=== PATIENT | male | born 1945 | race Caucasian/White ===

== ENCOUNTER 2022-02-01 08:00 | Outpatient (CLI) | payer MEDICARE, OTHER ==
[2022-02-01 20:15] LABS: BILIRUBIN,URINE NEGATIVE (NEGATIVE); GLUCOSE, URINE (UA) NEGATIVE (NEGATIVE); KETONES,URINE (UA) TRACE mg/dL (NEGATIVE); LEUKOCYTE ESTERASE, URINE SMALL (NEGATIVE); NITRITE,URINE NEGATIVE (NEGATIVE); OCCULT BLOOD,URINE NEGATIVE (NEGATIVE); PROTEIN,URINE NEGATIVE (NEGATIVE); UROBILINOGEN,URINE 0.2 (NORMAL) E.U./dL (NORMAL)
[2022-02-01 20:30] LABS: BACTERIA,URINE Moderate /HPF (None Seen); CLARITY,URINE CLOUDY (CLEAR); RBC,URINE None Seen /HPF (0-5); SQUAMOUS EPITHELIAL CELL,UR FEW Squamous (<= Few)
[2022-02-01 20:31] LABS: AMORPHOUS SEDIMENT,UR Marked /LPF
== END 2022-02-01 23:59 | disposition home or self-care (01) ==
LOC: LAB.S 08:00
PROVIDERS: ATTEND Emergency Medicine
DX: R30.0 Dysuria (principal)
CPT/HCPCS: 81001; 87077; 87086; 87181

== ENCOUNTER 2023-05-24 15:09 | Outpatient (CLI) | payer MEDICARE | END 2023-05-24 15:10 | disposition EMS.NT | LOC: EMS 15:09 | DX: R53.1 Weakness (principal); R39.89 Other symptoms and signs involving the genitourinary system ==

== ENCOUNTER 2023-05-24 16:13 | Emergency (ER) | payer MEDICARE, OTHER ==
[2023-05-24 16:58] LABS: GLUCOSE, URINE (UA) NEGATIVE (NEGATIVE); KETONES,URINE (UA) TRACE mg/dL (NEGATIVE); LEUKOCYTE ESTERASE, URINE MODERATE (NEGATIVE); NITRITE,URINE NEGATIVE (NEGATIVE); OCCULT BLOOD,URINE TRACE-INTA (NEGATIVE); PROTEIN,URINE 30 mg/dL (NEGATIVE); UROBILINOGEN,URINE 1 (NORMAL) E.U./dL (NORMAL)
[2023-05-24 17:03] LABS: CLARITY,URINE HAZY (CLEAR)
[2023-05-24 17:04] LABS: BILIRUBIN,URINE NEGATIVE (NEGATIVE); ICTOTEST,URINE NEGATIVE
--- NOTE | 2023-05-24 17:16 | ED Physician Documentation ---
PD HPI MALE - Stated complaint Stated Complaint: - Chief complaint Chief Complaint: UTI - History obtained from History obtained from: Patient, Family (daughter) - History of Present Illness Timing - onset: How many days ago (has had some mild confusion over baseline the past 1-2 days, with some left flank pain and some frequency of urination. Had incontinence last night, which is not common for him. No hematuria. Pt states it is similar to a prior UTI.) Timing - duration: Days (1-2) Timing - details: Gradual onset, Still present Associated symptoms: Urinary frequency. No: Hematuria, Discharge, Abdominal pain Similar symptoms before: Diagnosis (UTI remotely with similar symptoms.) Recently seen: Clinic (had been having some anger outbursts and lability along with his dementia and was started on Seroquel 25 mg at bed 3 weeks ago with improvement in mood/behavior, but daughter states he has been sleepier to get up in mornings. He seems slightly more confused the past couple of days. Wonders if med.) Review of Systems Unable to obtain: Other (poor short term memory, some info from family.) Constitutional: denies: Fever Respiratory: denies: Cough GI: reports: Vomiting, Other (decreased fluid intake the past 2-3 days). denies: Abdominal Pain, Diarrhea : reports: Frequency, Incontinent (last night). denies: Hematuria Musculoskeletal: reports: Back pain (left side for past 2 days) PD PAST MEDICAL HISTORY - Past Medical History Cardiovascular: None Respiratory: None Neuro: Dementia Endocrine/Autoimmune: None - Present Medications Home Medications: Ambulatory Orders Medication Instructions Recorded Confirmed Atorvastatin Calcium 40 mg PO DAILY 05/24/23 05/24/23 Donepezil [Aricept] 10 mg PO DAILY 05/24/23 05/24/23 QUEtiapine [SEROquel] 25 mg PO QPM 05/24/23 05/24/23 Sertraline HCl 100 mg PO DAILY 05/24/23 05/24/23 Tamsulosin HCl [Flomax] 0.4 mg PO DAILY 05/24/23 05/24/23 cephALEXin [Keflex] 500 mg PO TID #20 cap 05/24/23 - Allergies Allergies/Adverse Reactions: Allergies Allergy/AdvReac Type Severity Reaction Status Date / Time No Known Drug Allergies Allergy Verified 05/24/23 16:35 PD ED PE NORMAL - Vitals Vital signs reviewed: Yes - General General: Alert and oriented X 3 (he is actually qutie conversant and interacts well. Poor short term memory of events the past several days. ), No acute distress, Well developed/nourished - HEENT HEENT: Atraumatic - Neck Neck: Supple, no meningeal sign, No adenopathy - Cardiac Cardiac: RRR, No murmur - Respiratory Respiratory: Clear bilaterally - Abdomen Abdomen: Soft, Non tender, Non distended - Back Back: Other (mild left CVA tenderness. ) - Derm Derm: Normal color, Warm and dry - Extremities Extremities: No edema, No calf tenderness / cord - Neuro Neuro: Alert and oriented X 3, No motor deficit, No sensory deficit, Normal speech Results - Vitals Vitals: Oxygen O2 Source Room air - Labs Labs: Microbiology 05/24/23 16:50 Urine Culture - Preliminary Urine,Clean Catch Laboratory Tests 05/24/23 05/24/23 05/24/23 16:50 18:19 18:19 WBC 12.1 H RBC 4.27 L Hgb 13.6 L Hct 40.8 L MCV 95.6 H MCH 31.9 H MCHC 33.3 RDW 14.0 Plt Count 170 MPV 10.1 Neut # (Auto) 10.2 H Lymph # (Auto) 0.9 L [place] # (Auto) 0.9 Eos # (Auto) 0.0 Baso # (Auto) 0.0 Absolute Nucleated RBC 0.00 Nucleated RBC % 0.0 Sodium 135 Potassium 4.0 Chloride 100 L Carbon Dioxide 29 Anion Gap 6.0 BUN 24 H Creatinine 0.9 Estimated GFR (MDRD) 82 L Glucose 120 H Calcium 9.1 Magnesium 1.7 Total Bilirubin 1.7 H AST 24 ALT 19 Alkaline Phosphatase 103 Total Protein 6.6 Albumin 4.3 Globulin 2.3 Albumin/Globulin Ratio 1.9 Lipase 33 Urine Color YELLOW Urine Clarity HAZY Urine pH 5.0 Ur Specific [place] >=1.030 H Urine Protein 30 H Urine Glucose (UA) NEGATIVE Urine Ketones TRACE Urine Occult Blood TRACE-INTA Urine Nitrite NEGATIVE Urine Bilirubin NEGATIVE Urine Urobilinogen 1 (NORMAL) Ur Leukocyte Esterase MODERATE H Urine RBC None Seen Urine WBC >25 H Ur Squamous Epith Cells NONE SEEN Urine Bacteria Moderate H Urine Mucus Moderate Strands Ur Microscopic Review INDICATED Urine Culture Comments INDICATED PD Medical Decision Making - ED course Complexity details: reviewed results (WBC elevated at 12K. Not anemic. Lytes area good. Creatinine 0.9. UA c/w UTI with leuks, bacteria. Culture pending. ), considered differential (he ias having general weakness and feels some slight confusion. He has been more sleepy since started on Seroquel. Has not had behavioral outbursts though. Has had some UTI symptoms and UA is c/w UTI. Can treat for that. ), d/w patient ED course: Daughter is asking about decreasing or stopping the Seroquel since pt more sleepy in mornings/etc since starting it. She wonders if some of the weakness from med. She does state, when I ask about the behavioral aspects, that his mood during day has been more agreeable and not having outbursts. I described it as a balance between those aspects. His mood and behavior would be brian to being able to stay at the care facility, so they may need to tolerate some sleepiness. They can talk iwth his neurologist about decreasing dose if he remains too sleepy seeming after treating for the UTI (he has been on the Seroquel for 3 weeks and only the past few days seeming a bit confused per daughter). No other change in meds recent. He had been drinking less fluids the past few days, so maybe having higher effect of the Seroquel if underhydrated. Labs are good with creatinine 0.9 and GFR is reasonable at 82, without comparison labs in our system. Departure - Departure Disposition: 01 Home, Self Care Clinical Impression: Weakness, Mild dementia UTI (urinary tract infection) Qualifiers: Urinary tract infection type: acute cystitis Condition: Stable Record reviewed to determine appropriate education?: Yes Instructions: ED UTI Cystitis Male Follow-Up: MAJOR BLANTON MD [Primary Care Provider] - Prescriptions: cephALEXin [Keflex] 500 mg PO TID #20 cap Comments: Your white count/blood count is good with minimal elevation of the white count suggesting infection, not any signs of anemia. Your basic chemistry panel shows normal electrolytes and kidney function. Your urinalysis shows signs of infection. I think this is likely the cause of your symptoms and the feeling of unwellness. I would anticipate improvement with treating this with antibiotics over the next week. Stay well-hydrated. For now continue usual medications. Use the cephalexin 3 times a day for a week. I sent this to your preferred pharmacy electronically. You could discuss with your neurologist on Friday the idea of if you wish to try to decrease the Seroquel dosing but for now I would probably leave it as is until you discuss it with your specialist. Recheck if not improving well over the next couple of days and return if worse. Tylenol every 4-6 hours if needed for pains or fevers. I sent a prescription to the [facility] pharmacy in [place]. Discharge Date/Time: 05/24/23 19:19
[2023-05-24 17:35] LABS: BACTERIA,URINE Moderate /HPF (None Seen); MUCUS,URINE Moderate Strands; RBC,URINE None Seen /HPF (0-5); SQUAMOUS EPITHELIAL CELL,UR NONE SEEN (<= Few); WBC,URINE >25 /HPF (0-3)
[2023-05-24] MEDS ORDERED: cephALEXin 250 MG CAPSULE PO STA (17:48)
[2023-05-24 18:29] LABS: BASOPHILS % (AUTO) 0.2 %; HCT - HEMATOCRIT 40.8 % (42.0-52.0); HGB - HEMOGLOBIN 13.6 g/dL (14.0-18.0); LYMPHOCYTES # (AUTO) 0.9 10^3/uL (1.5-3.5); LYMPHOCYTES % (AUTO) 7.4 %; MEAN CORPUSCULAR HEMOGLOBIN 31.9 pg (27.0-31.0); MEAN CORPUSCULAR HGB CONC 33.3 g/dL (32.0-36.0); MEAN CORPUSCULAR VOLUME 95.6 fL (80.0-94.0); MEAN PLATELET VOLUME 10.1 fL (7.4-11.4); MONOCYTES # (AUTO) 0.9 10^3/uL (0.0-1.0); MONOCYTES % (AUTO) 7.5 %; NEUTROPHILS # (AUTO) 10.2 10^3/uL (1.5-6.6); NEUTROPHILS % (AUTO) 84.6 %; PLT - PLATELET COUNT 170 10^3/uL (130-450); RED BLOOD COUNT 4.27 10^6/uL (4.70-6.10); WHITE BLOOD COUNT 12.1 x10^3/uL (4.8-10.8)
[2023-05-24 18:45] LABS: ALBUMIN 4.3 g/dL (3.2-5.5); MAGNESIUM 1.7 mg/dL (1.7-2.3)
[2023-05-24 18:56] LABS: ALBUMIN/GLOBULIN RATIO 1.9 (1.0-2.2); BILIRUBIN,TOTAL 1.7 mg/dL (0.2-1.0); CALCIUM 9.1 mg/dL (8.5-10.3); CREATININE 0.9 mg/dL (0.6-1.3); TOTAL PROTEIN 6.6 g/dL (6.4-8.9)
[2023-05-24 19:20] VITALS: BP 148/84; O2SAT 98
== END 2023-05-24 19:19 | disposition home or self-care (01) ==
LOC: ED 16:13
DX: F03.A0 Unspecified dementia, mild, without behavioral disturbance, psychotic disturbance, mood disturbance, and anxiety (principal); N30.90 Cystitis, unspecified without hematuria
CPT/HCPCS: 36415; 80053; 81001; 83690; 83735; 85025; 87077; 87086; 87181; 99283; 99284; A9270; 81003

== ENCOUNTER 2023-10-01 11:26 | Outpatient (CLI) | payer MEDICARE | END 2023-10-01 23:59 | disposition home or self-care (01) | LOC: EMS 11:26 | DX: M25.561 Pain in right knee (principal); W01.0XXA Fall on same level from slipping, tripping and stumbling without subsequent striking against object, initial encounter; Y92.099 Unspecified place in other non-institutional residence as the place of occurrence of the external cause; F03.90 Unspecified dementia, unspecified severity, without behavioral disturbance, psychotic disturbance, mood disturbance, and anxiety | CPT/HCPCS: A0425; A0429 ==

== ENCOUNTER 2023-10-01 11:53 | Emergency (ER) | payer MEDICARE ==
--- NOTE | 2023-10-01 12:10 | ED Physician Documentation ---
PD HPI Fall - Stated complaint Stated Complaint: Fall - History obtained from History obtained from: Patient - History of Present Illness Mechanism of injury: Tripped (he states he jumped some to get over his dog that was lying in the way, fell forward onto knee. Pain and swelling in right knee. Denies other injury. No blood thinners.), Lost balance Fall distance: Standing position Where injury occurred: Home ([facility] Injury(ies) location: Right Lower Extremity (anterior knee). No: Head, Neck, Chest, Abdomen Associated symptoms: No: AMS, Neck pain, Weakness, Paresthesias Contributing factors: No: Anticoagulated Review of Systems Skin: denies: Abrasion (s), Laceration (s) Musculoskeletal: denies: Neck pain, Back pain Neurologic: denies: Focal weakness, Numbness, Confused, Altered mental status, Headache PD PAST MEDICAL HISTORY - Past Medical History Cardiovascular: None Respiratory: None Neuro: Dementia Endocrine/Autoimmune: None : Benign prostate hypertrophy HEENT: Glaucoma Psych: Anxiety Derm: Herpes zoster - Present Medications Home Medications: Ambulatory Orders Medication Instructions Recorded Confirmed Atorvastatin Calcium 40 mg PO DAILY 05/24/23 05/24/23 Donepezil [Aricept] 10 mg PO DAILY 05/24/23 05/24/23 QUEtiapine [SEROquel] 25 mg PO QPM 05/24/23 05/24/23 Sertraline HCl 100 mg PO DAILY 05/24/23 05/24/23 Tamsulosin HCl [Flomax] 0.4 mg PO DAILY 05/24/23 05/24/23 cephALEXin [Keflex] 500 mg PO TID #20 cap 05/24/23 - Allergies Allergies/Adverse Reactions: Allergies Allergy/AdvReac Type Severity Reaction Status Date / Time No Known Drug Allergies Allergy Verified 10/01/23 12:12 - Social History Does the pt smoke?: No Smoking Status: Never smoker PD ED PE NORMAL - Vitals Vital signs reviewed: Yes - General General: Alert and oriented X 3, No acute distress, Well developed/nourished - Extremities Extremities: Other (right anterior knee with tednerness. Some effusion anterior knee. No noted deformity. ) - Neuro Neuro: Alert and oriented X 3, No motor deficit, No sensory deficit Results - Vitals Vitals: Vital Signs - 24 hr 10/01/23 10/01/23 12:04 15:14 Temperature 36.2 C L Heart Rate 95 87 Respiratory 20 14 Rate Blood Pressure 163/93 H 140/75 H O2 Saturation 93 96 Oxygen O2 Source Room air - Rads (name of study) right knee Relevant Findings:: Prelim report reviewed, EMP independent interpretation of test (no fractures. No effusion. ) PD Medical Decision Making - ED course Complexity details: reviewed results (xray knee without fracture. ), considered differential (he states he fell onto knee with some swelling. Denies other injury. Particularly denies KWAN, neck pain, back pain. ), d/w patient Departure - Departure Disposition: Home, Self Care Clinical Impression: Accidental fall, Knee contusion Condition: Stable Record reviewed to determine appropriate education?: Yes Instructions: ED Contusion Lower Ext Comments: Your knee x-ray does not show any fractures. You do have swelling of the knee and that will make it sore and painful for motion and walking. I would assume this will improve over several days to week. Tylenol every 4-6 hours if needed for pains. You do not necessarily need a knee splint. Activity as tolerated. Discharge Date/Time: 10/01/23 16:05
--- NOTE | 2023-10-01 14:12 | XRAY Report ---
PROCEDURE: Knee 3V RT INDICATIONS: fall onto knee, with swelling TECHNIQUE: 3 views of the knee(s) were acquired. COMPARISON: None. FINDINGS: Bones: No fractures or dislocations. No suspicious bony lesions. Soft tissues: No knee joint effusion. No suspicious soft tissue calcifications or masses. IMPRESSION: No acute fracture. No osseous lesion. If symptoms and/or clinical suspicion for pathology continue, f urther assessment with repeat plain films, or advanced imaging (e.g., CT, MRI, or bone scan) is recom mended for further assessment. Reviewed by: Rinku Wong MD on 10/01/2023 2:11 PM PST Approved by: Rinku Wong MD on 10/01/2023 2:11 PM PST Station ID: [id number]
[2023-10-01 15:21] VITALS: BP 140/75; O2SAT 96
== END 2023-10-01 16:05 | disposition home or self-care (01) ==
LOC: EDUNIT# → ED 11:53
DX: S80.01XA Contusion of right knee, initial encounter (principal); W01.0XXA Fall on same level from slipping, tripping and stumbling without subsequent striking against object, initial encounter; Y92.099 Unspecified place in other non-institutional residence as the place of occurrence of the external cause; F03.90 Unspecified dementia, unspecified severity, without behavioral disturbance, psychotic disturbance, mood disturbance, and anxiety; Z79.899 Other long term (current) drug therapy
CPT/HCPCS: 99283

== ENCOUNTER 2023-10-24 10:03 | Outpatient (CLI) | payer MEDICARE | END 2023-10-24 23:59 | disposition left against medical advice (07) | LOC: EMS 10:03 | DX: Z03.89 Encounter for observation for other suspected diseases and conditions ruled out (principal); W01.198A Fall on same level from slipping, tripping and stumbling with subsequent striking against other object, initial encounter; Y93.01 Activity, walking, marching and hiking; Y92.098 Other place in other non-institutional residence as the place of occurrence of the external cause ==

== ENCOUNTER 2023-10-30 10:45 | Outpatient (CLI) | payer MEDICARE | END 2023-10-30 10:46 | disposition critical access hospital (66) | LOC: EMS 10:45 | DX: R41.0 Disorientation, unspecified (principal); Z87.440 Personal history of urinary (tract) infections | CPT/HCPCS: A0425; A0429 ==

== ENCOUNTER 2023-10-30 11:09 | Emergency (ER) | payer MEDICARE ==
--- NOTE | 2023-10-30 11:16 | ED Physician Documentation ---
History of Present Illness - Stated complaint Stated Complaint: UTI - Additonal information Additional information: 78-year-old male presents emergency department via EMS from [facility] for concerns from nursing staff about patient having increased confusion and agitation. Patient had a ground-level fall hitting head about 3 to 4 days ago unsure what elicited this fall. He does have history of UTIs, prostatectomy, dementia. Patient is able to follow commands and provide history what brings him to the emergency department today as well as answer all appropriate questions he is not any blood thinners PD PAST MEDICAL HISTORY - Past Medical History Cardiovascular: None Respiratory: None Neuro: Dementia Endocrine/Autoimmune: None : Benign prostate hypertrophy HEENT: Glaucoma Psych: Anxiety Derm: Herpes zoster - Past Surgical History Past Surgical History: No - Present Medications Home Medications: Ambulatory Orders Medication Instructions Recorded Confirmed Atorvastatin Calcium 40 mg PO DAILY 05/24/23 05/24/23 Donepezil [Aricept] 10 mg PO DAILY 05/24/23 05/24/23 QUEtiapine [SEROquel] 25 mg PO QPM 05/24/23 05/24/23 Sertraline HCl 100 mg PO DAILY 05/24/23 05/24/23 Tamsulosin HCl [Flomax] 0.4 mg PO DAILY 05/24/23 05/24/23 cephALEXin [Keflex] 500 mg PO TID #20 cap 05/24/23 - Allergies Allergies/Adverse Reactions: Allergies Allergy/AdvReac Type Severity Reaction Status Date / Time No Known Drug Allergies Allergy Verified 10/30/23 11:21 - Social History Does the pt smoke?: No Smoking Status: Never smoker Does the pt drink ETOH?: No Does the pt have substance abuse?: No - Immunizations Immunizations are current?: Yes - POLST Patient has POLST: Yes PD ED PE NORMAL - Vitals Vital signs reviewed: Yes - General General: Alert and oriented X 3, No acute distress, Well developed/nourished - HEENT HEENT: Atraumatic, PERRL, EOMI, Moist mucous membranes, Pharynx benign - Neck Neck: No bony TTP, C-Spine cleared by NEXUS criteria - Cardiac Cardiac: RRR - Respiratory Respiratory: No respiratory distress - Abdomen Abdomen: Normal bowel sounds, Soft, Non tender, Non distended, No organomegaly - Back Back: No CVA TTP - Derm Derm: Normal color, Warm and dry, No rash - Extremities Extremities: No edema - Neuro Neuro: Alert and oriented X 3, 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, No motor deficit, No sensory deficit, Normal speech Eye Opening: Spontaneous Motor: Obeys Commands Verbal: Oriented GCS Score: 15 - Psych Psych: Normal mood, Normal affect Results - Vitals Vitals: Vital Signs - 24 hr 10/30/23 10/30/23 11:15 14:03 Temperature 36.4 C L Heart Rate 60 48 L Respiratory 15 15 Rate Blood Pressure 155/95 H 147/93 H O2 Saturation 97 95 Oxygen O2 Source Room air - Labs Labs: Laboratory Tests 10/30/23 10/30/23 10/30/23 11:40 11:40 12:40 WBC 5.6 RBC 3.83 L Hgb 12.1 L Hct 37.2 L MCV 97.1 H MCH 31.6 H MCHC 32.5 RDW 14.2 Plt Count 167 MPV 9.9 Neut # (Auto) 3.5 Lymph # (Auto) 1.3 L [place] # (Auto) 0.6 Eos # (Auto) 0.2 Baso # (Auto) 0.0 Absolute Nucleated RBC 0.00 Nucleated RBC % 0.0 Sodium 142 Potassium 3.4 L Chloride 108 Carbon Dioxide 31 Anion Gap 3.0 L BUN 22 H Creatinine 0.8 Estimated GFR (MDRD) 93 Glucose 99 Calcium 8.7 Magnesium 1.8 Total Bilirubin 1.1 H AST 16 ALT 16 Alkaline Phosphatase 117 Total Protein 6.0 L Albumin 3.7 Globulin 2.3 Albumin/Globulin Ratio 1.6 Lipase 35 Urine Color DARK YELLOW Urine Clarity CLEAR Urine pH 6.5 Ur Specific [place] 1.020 Urine Protein NEGATIVE Urine Glucose (UA) NEGATIVE Urine Ketones NEGATIVE Urine Occult Blood NEGATIVE Urine Nitrite NEGATIVE Urine Bilirubin NEGATIVE Urine Urobilinogen 2 H Ur Leukocyte Esterase NEGATIVE Ur Microscopic Review NOT INDICATED Urine Culture Comments NOT INDICATED - Rads (name of study) Head CT without Relevant Findings:: Final report received, EMP independent interpretation of test, Other (No acute intracranial abnormalities) PD Medical Decision Making - ED course ED course: 78-year-old male presents emergency department for concerns from [facility] of altered mental status and ground-level fall. Head CT was complete and there is no intracranial abnormalities or findings. Labs are also complete his mild anemia, hemoglobin 12.1, hematocrit 37.2, no significant electrolyte abnormalities, and urinalysis is unremarkable not indicative of a urinary tract infection, no nitrates no leukocytes. At this point in time I am not seeing any confusion he is alert and oriented x 4 to for myself he does appear to have some mild short-term memory loss. Nursing staff report also that they were noting some agitation but patient is calm and cooperative here in the emergency department resting comfortably. I do not believe there is any further emergent workup indicated at this time. Patient is safe for discharge return precautions given. Departure - Departure Disposition: 01 Home, Self Care Clinical Impression: Ground-level fall Instructions: Falls Prevent Stay Active, Falls Preventing Comments: Thank you for trusting us with your care, we have evaluated you for your ground- level fall and increased confusion. You do not have a urinary tract infection given no other acute lab abnormalities. We also completed a head CT which was found to be within normal limits. At this point in time you are safe for discharge please follow-up with your primary care provider as needed.
[2023-10-30] MEDS: ERYTHROMYCIN OPHTH OINT 1 GM TUBE RIGHTEYE STA (11:44)
[2023-10-30 11:47] LABS: BASOPHILS % (AUTO) 0.5 %; EOSINOPHILS # (AUTO) 0.2 10^3/uL (0.0-0.7); EOSINOPHILS % (AUTO) 3.4 %; HCT - HEMATOCRIT 37.2 % (42.0-52.0); HGB - HEMOGLOBIN 12.1 g/dL (14.0-18.0); LYMPHOCYTES # (AUTO) 1.3 10^3/uL (1.5-3.5); LYMPHOCYTES % (AUTO) 23.3 %; MEAN CORPUSCULAR HEMOGLOBIN 31.6 pg (27.0-31.0); MEAN CORPUSCULAR HGB CONC 32.5 g/dL (32.0-36.0); MEAN CORPUSCULAR VOLUME 97.1 fL (80.0-94.0); MEAN PLATELET VOLUME 9.9 fL (7.4-11.4); MONOCYTES # (AUTO) 0.6 10^3/uL (0.0-1.0); MONOCYTES % (AUTO) 10.3 %; NEUTROPHILS # (AUTO) 3.5 10^3/uL (1.5-6.6); NEUTROPHILS % (AUTO) 62.3 %; PLT - PLATELET COUNT 167 10^3/uL (130-450); RED BLOOD COUNT 3.83 10^6/uL (4.70-6.10); RED CELL DISTRIBUTION WIDTH 14.2 % (12.0-15.0); WHITE BLOOD COUNT 5.6 x10^3/uL (4.8-10.8)
[2023-10-30 11:55] LABS: MAGNESIUM 1.8 mg/dL (1.7-2.3)
[2023-10-30 12:01] LABS: ALBUMIN 3.7 g/dL (3.2-5.5); ALBUMIN/GLOBULIN RATIO 1.6 (1.0-2.2); BILIRUBIN,TOTAL 1.1 mg/dL (0.2-1.0); CALCIUM 8.7 mg/dL (8.5-10.3); CREATININE 0.8 mg/dL (0.6-1.3); POTASSIUM 3.4 mmol/L (3.5-4.5)
--- NOTE | 2023-10-30 12:15 | CT Report ---
PROCEDURE: Head WO INDICATIONS: confusion, GLF, asymmetric pupils TECHNIQUE: Noncontrast 4.5 mm thick angled axial sections acquired from the foramen magnum to the vertex. For r adiation dose reduction, the following was used: automated exposure control, adjustment of mA and/or kV according to patient size. COMPARISON: None. FINDINGS: Image quality: Excellent. CSF spaces: Basal cisterns are patent. No extra-axial fluid collections. Ventricles are normal in size and shape. Brain: No midline shift. No intracranial masses or hemorrhage. Morgan-white matter interface is norm al. Intracranial carotid calcifications. Age-related volume loss and small vessel ischemic change. Skull and face: Calvarium and visualized facial bones are intact, without suspicious lesions. Sinuses: Sphenoid sinus mucosal thickening and near total opacification. 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 No other acute intracranial pathology. Reviewed by: Dion Vazquez MD on 10/30/2023 12:14 PM PDT Approved by: Dion Vazquez MD on 10/30/2023 12:14 PM PDT Station ID: [id number]
[2023-10-30 12:47] LABS: BILIRUBIN,URINE NEGATIVE (NEGATIVE); GLUCOSE, URINE (UA) NEGATIVE (NEGATIVE); KETONES,URINE (UA) NEGATIVE (NEGATIVE); LEUKOCYTE ESTERASE, URINE NEGATIVE (NEGATIVE); NITRITE,URINE NEGATIVE (NEGATIVE); OCCULT BLOOD,URINE NEGATIVE (NEGATIVE); PH,URINE 6.5 PH (5.0-7.5); PROTEIN,URINE NEGATIVE (NEGATIVE); UROBILINOGEN,URINE 2 E.U./dL (NORMAL)
[2023-10-30 12:48] LABS: CLARITY,URINE CLEAR (CLEAR)
[2023-10-30] MEDS: POTASSIUM CHLORIDE 20 MEQ TABLET PO STA (13:06)
[2023-10-30 14:07] VITALS: BP 147/93; O2SAT 95
== END 2023-10-30 14:35 | disposition home or self-care (01) ==
LOC: EDUNIT# → ED 11:09
DX: S09.90XA Unspecified injury of head, initial encounter (principal); W18.39XA Other fall on same level, initial encounter; Y92.129 Unspecified place in nursing home as the place of occurrence of the external cause; F03.90 Unspecified dementia, unspecified severity, without behavioral disturbance, psychotic disturbance, mood disturbance, and anxiety; N40.0 Benign prostatic hyperplasia without lower urinary tract symptoms; Z79.899 Other long term (current) drug therapy
CPT/HCPCS: 36415; 70450; 80053; 81003; 83690; 83735; 85025; 99283; 99284; A9270; J3490; 81001; 87086

== ENCOUNTER 2023-11-25 15:32 | Outpatient (CLI) | payer MEDICARE | END 2023-11-25 23:59 | disposition EMS.NT | LOC: EMS 15:32 | DX: R41.0 Disorientation, unspecified (principal) ==

== ENCOUNTER 2024-02-10 11:53 | Outpatient (CLI) | payer MEDICARE ==
[2024-02-10 15:08] LABS: BILIRUBIN,URINE NEGATIVE (NEGATIVE); GLUCOSE, URINE (UA) NEGATIVE (NEGATIVE); KETONES,URINE (UA) TRACE mg/dL (NEGATIVE); LEUKOCYTE ESTERASE, URINE NEGATIVE (NEGATIVE); NITRITE,URINE NEGATIVE (NEGATIVE); OCCULT BLOOD,URINE NEGATIVE (NEGATIVE); PROTEIN,URINE NEGATIVE (NEGATIVE); UROBILINOGEN,URINE 0.2 (NORMAL) E.U./dL (NORMAL)
[2024-02-10 15:09] LABS: CLARITY,URINE CLEAR (CLEAR)
[2024-02-10 15:19] LABS: BACTERIA,URINE None Seen /HPF (None Seen); CRYSTALS,URINE 0-2 Calcium Oxalate /LPF; MUCUS,URINE Few Strands; RBC,URINE 0-5 /HPF (0-5); SQUAMOUS EPITHELIAL CELL,UR NONE SEEN (<= Few); WBC,URINE 0-3 /HPF (0-3)
== END 2024-02-10 11:54 | disposition home or self-care (01) ==
LOC: LAB.S 11:53
PROVIDERS: ATTEND Nurse Practitioner Adult Health
DX: R41.0 Disorientation, unspecified (principal)
CPT/HCPCS: 81001; 87086